=== PATIENT | male | born 1960 | race African-American/Black ===

== ENCOUNTER 2018-04-27 13:46 | Outpatient (CLI) | payer MEDICAID ==
[~2018-04-27] VITALS: Ht 157.5 cm; Wt 54.4 kg
[2018-04-27 14:28] VITALS: BP 130/78
[2018-04-27] MEDS ORDERED: HYDROCHLOROTHIA25 MG ORAL (14:28)
[2018-04-27] MEDS ORDERED: IBUPROFEN600 MG ORAL (14:28)
--- NOTE | 2018-04-27 14:34 | General Progress Note ---
Assessment/Plan Problem List: (1) Rectal bleeding ICD Codes: K62.5 - Hemorrhage of anus and rectum SNOMED: 50455112 Assessment/Plan PLAN COLONOSCOPY WHEN APPROVED BY INSURANCE Subjective ROS Limited/Unobtainable: Yes Allergies: Coded Allergies: No Known Allergies (Unverified , 04/27/18) Objective Last 24 Hour Vital Signs Date Time Temp Pulse Resp B/P (MAP) Pulse Ox O2 Delivery O2 Flow Rate FiO2 04/27/18 14:28 98.5 71 16 130/78 99 General Appearance: alert EENT: normal ENT inspection Neck: supple Cardiovascular: normal rate Respiratory/Chest: lungs clear Abdomen: normal bowel sounds, non tender, soft Extremities: non-tender Blas Rodriguez MD Apr 27, 2018 14:34
== END 2018-04-27 14:16 | disposition home or self-care (01) ==
LOC: PAN 13:46
DX: K62.5 Hemorrhage of anus and rectum (principal)
CPT/HCPCS: 99202

== ENCOUNTER 2018-05-23 10:13 | Outpatient (CLI) | payer MEDICAID ==
[2018-05-22 10:30] VITALS: BP 123/58
[~2018-05-23 10:13] MED LIST: HYDROCHLOROTHIA25 MG ORAL; IBUPROFEN600 MG ORAL
--- NOTE | 2018-05-23 14:27 | General Progress Note ---
Assessment/Plan Problem List: (1) Rectal bleeding ICD Codes: K62.5 - Hemorrhage of anus and rectum SNOMED: 69619728 Assessment/Plan s/p colonoscopy one rectal polyp fu prn Subjective ROS Limited/Unobtainable: Yes Allergies: Coded Allergies: No Known Allergies (Unverified , 04/27/18) Objective General Appearance: alert EENT: normal ENT inspection Neck: supple Cardiovascular: normal rate Respiratory/Chest: decreased breath sounds Abdomen: normal bowel sounds, non tender, no organomegaly Extremities: non-tender Blas Rodriguez MD May 23, 2018 14:27
== END 2018-05-23 12:13 | disposition home or self-care (01) ==
LOC: PAN 10:13
DX: K62.5 Hemorrhage of anus and rectum (principal); Z86.010 Personal history of colon polyps
CPT/HCPCS: G0463

== ENCOUNTER 2018-07-20 14:30 | Outpatient (CLI) | payer MEDICAID ==
[2018-07-20 14:30] VITALS: BP 121/70
--- NOTE | 2018-07-20 14:44 | General Progress Note ---
Assessment/Plan Problem List: (1) Rectal bleeding ICD Codes: K62.5 - Hemorrhage of anus and rectum SNOMED: 89890522 Assessment/Plan: recent colonoscopy possible hemorrhoidal bleed Anusol-HC needs banding if no response no constipation limit abd exercise Subjective ROS Limited/Unobtainable: Yes Allergies: Coded Allergies: No Known Allergies (Unverified , 04/27/18) Objective General Appearance: no apparent distress EENT: PERRL/EOMI Neck: supple Cardiovascular: normal rate Respiratory/Chest: lungs clear Abdomen: normal bowel sounds, non tender, soft Extremities: non-tender Blas Rodriguez MD July 20, 2018 14:44
== END 2018-07-20 15:50 | disposition home or self-care (01) ==
LOC: PAN 14:30
DX: K62.5 Hemorrhage of anus and rectum (principal)
CPT/HCPCS: 99212

== ENCOUNTER 2018-08-03 13:45 | Outpatient (CLI) | payer MEDICAID ==
--- NOTE | 2018-08-03 15:00 | General Progress Note ---
Assessment/Plan Problem List: (1) Hemorrhoids ICD Codes: K64.9 - Unspecified hemorrhoids SNOMED: 67114575 (2) Rectal bleeding ICD Codes: K62.5 - Hemorrhage of anus and rectum SNOMED: 69597824 Assessment/Plan: no respond to medical management needs banding Subjective ROS Limited/Unobtainable: No Allergies: Coded Allergies: No Known Allergies (Unverified , 04/27/18) Objective General Appearance: alert EENT: normal ENT inspection Neck: supple Cardiovascular: normal rate Respiratory/Chest: lungs clear Abdomen: normal bowel sounds, non tender, soft Extremities: non-tender Blas Rodriguez MD Aug 03, 2018 15:00
== END 2018-08-03 15:24 | disposition home or self-care (01) ==
LOC: PAN 13:45
DX: K64.9 Unspecified hemorrhoids (principal); K62.5 Hemorrhage of anus and rectum
CPT/HCPCS: 99212

== ENCOUNTER 2018-10-17 10:15 | Outpatient (CLI) | payer MEDICAID ==
--- NOTE | 2018-10-17 10:48 | General Progress Note ---
Assessment/Plan Problem List: (1) Hemorrhoids ICD Codes: K64.9 - Unspecified hemorrhoids SNOMED: 55931275 (2) Rectal bleeding ICD Codes: K62.5 - Hemorrhage of anus and rectum SNOMED: 43234311 Assessment/Plan: s/p banding much better now fu prn Subjective ROS Limited/Unobtainable: Yes Allergies: Coded Allergies: No Known Allergies (Unverified , 04/27/18) Objective General Appearance: no apparent distress EENT: normal ENT inspection Neck: supple Cardiovascular: normal rate Respiratory/Chest: lungs clear Abdomen: normal bowel sounds, non tender, soft Extremities: non-tender Blas Rodriguez MD Oct 17, 2018 10:48
[2018-10-17] MEDS ORDERED: COLACE100 MG ORAL (14:04)
[2018-10-17 14:06] VITALS: BP 104/65
== END 2018-10-17 12:15 | disposition home or self-care (01) ==
LOC: PAN 10:15
DX: K64.9 Unspecified hemorrhoids (principal); K62.5 Hemorrhage of anus and rectum

== ENCOUNTER 2019-08-16 13:26 | Outpatient (CLI) | payer MEDICAID ==
[~2019-08-16 13:26] MED LIST changes: +COLACE100 MG ORAL
--- NOTE | 2019-08-16 18:15 | Progress Note ---
DATE: 08/16/2019 CHIEF COMPLAINT: Rectal bleeding. HISTORY OF PRESENT ILLNESS: This is a very pleasant 58-year-old male with past medical history of internal hemorrhoids requiring banding about in September of last year. He presented again with complaint of same symptoms of rectal bleeding, not responding to medical management. PHYSICAL EXAMINATION: VITAL SIGNS: Temperature is 98.6, weight is 127. HEENT: Normocephalic, atraumatic. Sclerae anicteric. NECK: Supple. No evidence of obvious lymphadenopathy. CARDIOVASCULAR: Regular rate and rhythm. Plus S1 and S2. No obvious murmur. LUNGS: Clear to auscultation bilaterally. ABDOMEN: Positive bowel sounds. Soft and nontender. No rebound. No guarding. No peritoneal sign. EXTREMITIES: No cyanosis. No clubbing. No edema. ASSESSMENT AND PLAN: This is a 58-year-old male with recurrent internal hemorrhoids, not responding to medical management. Plan, the patient with banding of the hemorrhoids. Patient was given the prep. We are going to try to get authorization and schedule patient for banding. Blas Rodriguez M.D. DR: ISAÍAS JOB#: [id number] CC:
== END 2019-08-16 15:42 | disposition home or self-care (01) ==
LOC: PAN 13:26
DX: K62.5 Hemorrhage of anus and rectum (principal)
CPT/HCPCS: 99212

== ENCOUNTER 2019-12-06 12:27 | Outpatient (CLI) | payer MEDICAID ==
--- NOTE | 2019-12-06 13:42 | General Progress Note ---
Subjective ROS Limited/Unobtainable: No Allergies: Coded Allergies: No Known Allergies (Unverified , 04/27/18) Objective General Appearance: alert EENT: normal ENT inspection Neck: supple Cardiovascular: normal rate Respiratory/Chest: decreased breath sounds Abdomen: normal bowel sounds, non tender, soft Extremities: non-tender Assessment/Plan Problem List: (1) Hemorrhoids ICD Codes: K64.9 - Unspecified hemorrhoids SNOMED: 85966264 (2) Rectal bleeding ICD Codes: K62.5 - Hemorrhage of anus and rectum SNOMED: 05518477 Assessment/Plan: s/p banding doing much better fu prn Blas Rodriguez MD Dec 06, 2019 13:42
== END 2019-12-06 14:27 | disposition home or self-care (01) ==
LOC: PAN 12:27
DX: K64.9 Unspecified hemorrhoids (principal); K62.5 Hemorrhage of anus and rectum
CPT/HCPCS: 99212